=== PATIENT | male | born 1940 | race Two or more races ===

== ENCOUNTER 2024-07-16 09:45 | Emergency (ER) | payer OTHER ==
[~2024-07-16] VITALS: Ht 162.6 cm; Wt 68.0 kg
[2024-07-16] MEDS ORDERED: ALTACE1.25 MG (10:03)
[2024-07-16] MEDS ORDERED: KETOROLAC TROMETHAMINE 15 MG VIAL IM STA (10:20)
== END 2024-07-16 11:36 | disposition home or self-care (01) ==
LOC: ER 09:46
DX: M54.32 Sciatica, left side (principal)
CPT/HCPCS: 72100; 96372; 99283; J1885